=== PATIENT | male | born 1960 | race Two or more races ===

== ENCOUNTER → 2017-10-25 | Outpatient (CLI) | payer OTHER ==
[~2017-10-25] VITALS: Ht 167.6 cm; Wt 82.7 kg
[~2017-10-25] MED LIST: AMOXICILLIN500 M1 PO; CELEBREX200 MG PO; FLEXERIL10 MG PO; FLONASE ALLERG9.9 ML BOTH NARES; LIPITOR20 MG PO; OMEPRAZOLE40 M1 PO; PERCOCET 5/31 TABLET PO; SINGULAIR10 MG PO; VENTOLIN HFA18 GM IH
== END | disposition home or self-care (01) ==
LOC: AMB 07:41
DX: Z12.11 Encounter for screening for malignant neoplasm of colon (principal); D12.2 Benign neoplasm of ascending colon; D12.5 Benign neoplasm of sigmoid colon; K29.60 Other gastritis without bleeding; K62.1 Rectal polyp; K63.5 Polyp of colon; K64.8 Other hemorrhoids; E53.8 Deficiency of other specified B group vitamins; J42 Unspecified chronic bronchitis; E78.5 Hyperlipidemia, unspecified; G47.30 Sleep apnea, unspecified; Z82.49 Family history of ischemic heart disease and other diseases of the circulatory system; Z82.61 Family history of arthritis; Z87.891 Personal history of nicotine dependence; Z88.1 Allergy status to other antibiotic agents; Z91.040 Latex allergy status
CPT/HCPCS: 88305; 88342 TC; J2250; J3010